=== PATIENT | male | born 1945 | race Caucasian/White ===

== ENCOUNTER → 2017-07-10 | Outpatient (CLI) | payer MEDICARE, OTHER ==
--- NOTE | 2017-07-10 10:41 | Diagnostic Imaging Report ---
INDICATION: Pain and redness to the scrotum. FINDINGS: Right testicle measures 4.2 x 2.5 x 2.5 cm, and left testicle measures 3.9 x 2.3 x 2.7 cm. Both testicles demonstrate homogeneous echogenicity and normal blood flow. The right epididymis is slightly more prominent than the left with some increased blood flow. This is suspect for epididymitis. There is also a right hydrocele. IMPRESSION: Findings suspect for right epididymitis with a right hydrocele. No evidence of discrete testicular mass or torsion. Dictated by: Dictated on workstation # [id number]
== END ==
LOC: RAD 08:23
DX: N43.3 Hydrocele, unspecified (principal)
CPT/HCPCS: 76870

== ENCOUNTER → 2020-11-10 | Outpatient (CLI) | payer MEDICARE, OTHER ==
--- NOTE | 2020-11-10 12:39 | Diagnostic Imaging Report ---
INDICATION: Left toe pain. COMPARISON: None. FINDINGS: Multiple radiographic views of the left foot were obtained. There is no acute fracture or dislocation. Moderate osteoarthritic changes are noted involving the tibiotalar joint space, midfoot, and 1st metatarsophalangeal joint space. Otherwise, the joint spaces are maintained. The osseous structures are intact. No unexpected radiopaque foreign bodies are identified. IMPRESSION: 1. No acute fracture or dislocation of the left foot. 2. Moderate osteoarthritic changes. Dictated by: Dictated on workstation # [id number]
== END ==
LOC: RAD 11:56
DX: M19.072 Primary osteoarthritis, left ankle and foot (principal); M86.9 Osteomyelitis, unspecified
CPT/HCPCS: 73630

== ENCOUNTER → 2022-05-26 | Outpatient (CLI) | payer MEDICARE, OTHER ==
--- NOTE | 2022-05-26 12:18 | Diagnostic Imaging Report ---
PROCEDURE: US Scrotum. TECHNIQUE: Multiple real-time grayscale images were obtained over the scrotum in various projections bilaterally. INDICATION: Left epididymitis and orchitis. Right testicle measures 4.5 x 2.0 x 2.5 cm. The left testicle measures 4.2 x 2.3 x 1.8 cm. Both testes show homogeneous echotexture. No discrete testicular mass is identified. There is blood flow to both testes. Right epididymis is unremarkable. Left epididymis is hypervascular, perhaps owing to epididymitis. In addition, there is a large hydrocele which contains internal septations. No right-sided hydrocele is seen. There is no varicocele. IMPRESSION: 1. No evidence of testicular mass or vascular compromise. 2. Hypervascular left epididymis, suspicious for epididymitis. In addition, there is a complex left hydrocele. Dictated by: Dictated on workstation # [id number]
== END ==
LOC: RAD 08:29
PROVIDERS: ATTEND Urology
DX: N45.3 Epididymo-orchitis (principal)
CPT/HCPCS: 76870